=== PATIENT | female | born 1990 | race Caucasian/White ===

== ENCOUNTER 2017-11-04 22:43 | Observation (INO) ==
--- NOTE | 2017-11-05 00:27 | Emergency Department Note ---
START Narrative - START START: I examined this patient and my medical decision-making was reviewed with the Resident Physician. I agree with the documented findings, disposition and treatment plan as described except to the extent set forth below. 27-year-old female presents emergency room for right neck swelling. She states she had a small pimple on her neck last night and she attempted to pop it by squeezing it numerous times. She woke up this morning and noticed increased swelling to this area with some redness. She states the swelling and firmness has worsened. It is all located over the right anterior lateral part of her neck. She is able to swallow okay without any difficulty. No problems breathing. She states pain is worse with movement and with coughing. She denies any documented fevers. 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 Plan to check labs, blood cultures, CT soft tissue neck with IV contrast to evaluate this mass.
[2017-11-05 00:59] LABS: Basophils # 0.1 K/mcL (0.0-0.2); Basophils % 0.7 %; Eosinophils # 0.3 K/mcL (0.0-0.6); Eosinophils % 2.8 %; Hemoglobin 12.2 g/dL (11.5-15.4); Immature Granulocytes % 0.3 % (0-4); Lymphocytes % 31.9 %; Mean Corpuscular HGB Conc 31.3 g/dL (31.6-35.5); Mean Corpuscular Volume 89.7 fL (83.0-100.0); Mean Platelet Volume 10.9 fL (9.4-12.4); Monocytes # 0.7 K/mcL (0.0-1.3); Monocytes % 7.3 %; Neutrophils # 5.4 K/mcL (1.6-8.9); Platelet Count 304 K/mcL (140-400); Red Blood Count 4.35 M/mcL (3.82-4.97); Red Cell Distribution Width 13.5 % (11.5-14.5)
--- NOTE | 2017-11-05 01:05 | Emergency Department Note ---
Disposition Clinical Impression: Cellulitis, neck Disposition: Still a Patient Condition: Good Referrals: NONE,PCP [Primary Care Provider] - General Adult HPI - General Chief complaint: ED Skin/Abscess/Foreign Body Stated complaint: abscess on right side of neck Time Seen by Provider: 11/04/17 23:41 Source: patient Limitations: no limitations Nursing Notes Reviewed: Yes Vital Signs Reviewed: Yes - History of Present Illness HPI Narrative: Patient with a history of MRSA and IV drug use presents for evaluation of erythema and swelling to the right side of her neck. Patient states that she had a small pimple that she tried to pop that she was unable to get fluid from. Patient woke up this morning with increasing swelling redness and pain. Continue to progress. Patient has pain with coughing. Patient has pain with swallowing. Patient has no airway compromise at this time. Denies fever, chills, nausea, vomiting. Due to the location of this erythema and cellulitis we will perform blood work as well as a CT scan to rule out abscess. Patient will likely need admission secondary to location. Pain Scale: 6 - Related Data Previous Rx's Medication Instructions Recorded Clindamycin HCl [Cleocin HCl] 150 mg PO QID #40 capsule 12/07/16 Sulfamethoxazole/Trimeth DS 1 each PO BID #20 tablet 12/07/16 [Bactrim DS] Allergies Allergy/AdvReac Type Severity Reaction Status Date / Time No Known Allergies Allergy Verified 09/08/16 19:39 Review of Systems: CONSTITUTIONAL: No weight loss, fever, chills, weakness or fatigue. HEENT: Eyes: No visual changes. Ears, Nose, Throat: Pain with swallowing coughing No hearing loss, difficulty talking or unable to swallow. SKIN: Erythema and swelling to the right side of the neck CARDIOVASCULAR: No chest pain, chest pressure or chest discomfort. No palpitations or edema. RESPIRATORY: No shortness of breath, cough or sputum. GASTROINTESTINAL: No anorexia, nausea, vomiting or diarrhea. No abdominal pain or blood. GENITOURINARY: No burning on urination or hematuria. NEUROLOGICAL: No headache, dizziness, syncope, paralysis, ataxia, numbness or tingling in the extremities. No change in bowel or bladder control. MUSCULOSKELETAL: No muscle pain, back pain, joint pain or stiffness. Past Medical History - Past Medical History Medical history: Reports: no medical history Surgical history: Reports: Psychiatric history: Reports: panic disorder SUPERVISOR PREPRESS history: Reports: no SUPERVISOR PREPRESS history - Social History Smoking Status: Current every day smoker Smokeless Tobacco Status: No Alcohol use: Reports: none Drug use: Reports: none, IV Drug Use Physical Exam General appearance: NAD, conversant Eyes: anicteric sclerae, moist conjunctivae; no lid-lag; PERRL HENT: Atraumatic; oropharynx clear with moist mucous membranes; patient with 7 x 5 cm lesion to the right side of the neck. Local induration. No specific fluctuance felt. Patient has no airway compromise. No tenderness to palpation of the trachea. Neck: Normal appearance; Trachea midline Chest: Symmetrical chest rise; No respiratory distress Extremities: No peripheral edema or extremity tenderness Skin: Normal temperature, turgor and texture; no rash, ulcers or subcutaneous nodules Psych: Appropriate mood and affect Neuro: Awake and alert - General Limitations: no limitations General appearance: alert, in no apparent distress Course - Reevaluation(s) Reevaluation #1: Cases been signed out to Dr. Ac. The patient will likely need admission to the hospital for IV antibiotics. If abscess noted a consult ENT to be warranted. Vital Signs Temperature 98.0 F 11/04/17 22:44 Pulse Rate 80 11/04/17 22:44 Respiratory Rate 18 11/04/17 22:44 Blood Pressure 125/79 11/04/17 22:44 O2 Sat by Pulse Oximetry 100 11/04/17 22:44 Temperature 98.0 F 11/04/17 22:44 Pulse Rate 80 11/04/17 22:44 Respiratory Rate 18 11/04/17 22:44 Blood Pressure 125/79 11/04/17 22:44 O2 Sat by Pulse Oximetry 100 11/04/17 22:44 Oxygen Delivery Oxygen Delivery Room Air Medical Decision Making - Lab Data Result diagrams: 11/05/17 00:40 Lab Results 11/05/17 Range/Units 00:40 WBC 9.5 (4.3-11.1) K/mcL RBC 4.35 (3.82-4.97) M/mcL Hgb 12.2 (11.5-15.4) g/dL Hct 39.0 (35.3-44.9) % MCV 89.7 (83.0-100.0) fL MCH 28.0 (28.0-33.3) pg MCHC 31.3 L (31.6-35.5) g/dL RDW 13.5 (11.5-14.5) % Plt Count 304 (140-400) K/mcL MPV 10.9 (9.4-12.4) fL Immature Gran % 0.3 (0-4) % Seg Neutrophils % 57.0 % Lymphocytes % 31.9 % Monocytes % 7.3 % Eosinophils % 2.8 % Basophils % 0.7 % Neutrophils # 5.4 (1.6-8.9) K/mcL Lymphocytes # 3.0 (0.6-4.6) K/mcL Monocytes # 0.7 (0.0-1.3) K/mcL Eosinophils # 0.3 (0.0-0.6) K/mcL Basophils # 0.1 (0.0-0.2) K/mcL
[2017-11-05 01:22] LABS: BUN/Creatinine Ratio 19 (6-26); Blood Urea Nitrogen 10 mg/dL (6-20); Calcium 9.6 mg/dL (8.6-10.3); Carbon Dioxide 25 mEq/L (23-29); Chloride 102 mEq/L (98-107); Glucose 114 mg/dL (70-105); Osmolality,Calculated 280 (280-300); Potassium 3.5 mEq/L (3.5-5.1); Sodium 135 mEq/L (136-145); eGFR For African Americans > 60 (> 60); eGFR For Non-African Americans > 60 (> 60)
[2017-11-05] MEDS ORDERED: Clindamycin 600 MG/50 ML 600 MG/50 ML IV.SOLN IVPB ONE (02:13)
--- NOTE | 2017-11-05 02:28 | Emergency Department Note ---
Disposition Clinical Impression: Neck abscess Disposition: Admitted As Inpatient Condition: Good Referrals: NONE,PCP [Primary Care Provider] - Forms: ED Satisfaction Letter General Adult HPI - General Chief complaint: ED Skin/Abscess/Foreign Body Stated complaint: abscess on right side of neck Time Seen by Provider: 11/04/17 23:41 Source: patient Limitations: no limitations - History of Present Illness Pain Scale: 6 - Related Data Previous Rx's Medication Instructions Recorded Clindamycin HCl [Cleocin HCl] 150 mg PO QID #40 capsule 12/07/16 Sulfamethoxazole/Trimeth DS 1 each PO BID #20 tablet 12/07/16 [Bactrim DS] Allergies Allergy/AdvReac Type Severity Reaction Status Date / Time No Known Allergies Allergy Verified 09/08/16 19:39 Past Medical History - Past Medical History Medical history: Reports: no medical history Surgical history: Reports: Psychiatric history: Reports: panic disorder CLINICAL ADVISOR history: Reports: no CLINICAL ADVISOR history - Social History Smoking Status: Current every day smoker Smokeless Tobacco Status: No Alcohol use: Reports: none Drug use: Reports: none, IV Drug Use Physical Exam - General Limitations: no limitations General appearance: alert, in no apparent distress Course Course Narrative: Patient signed out from dayshift team pending CT scan of the neck. - Reevaluation(s) Reevaluation #1: Discussed results of imaging with the patient. No airway compromise at this time. Agreeable with IV antibiotics and admission. Reevaluation #2: CTA without evidence of pulmonary embolism or septic emboli. - Consultations Consultation #1: I spoke with the on-call ENT provider Dr. Mayo. Discussed the patient's history exam imaging labs and interventions. Recommends IV antibiotics and admission to the hospitalist service with consultation. Vital Signs Temperature 98.0 F 11/04/17 22:44 Pulse Rate 80 11/04/17 22:44 Respiratory Rate 18 11/04/17 22:44 Blood Pressure 125/79 11/04/17 22:44 O2 Sat by Pulse Oximetry 100 11/04/17 22:44 Temperature 98.0 F 11/04/17 22:44 Pulse Rate 67 11/05/17 03:00 Respiratory Rate 16 11/05/17 03:00 Blood Pressure 97/63 11/05/17 03:00 O2 Sat by Pulse Oximetry 97 11/05/17 03:00 Oxygen Delivery Oxygen Delivery Room Air Medical Decision Making - MDM Narrative Medical decision making narrative: 27-year-old female presents to the ER due to right neck swelling. Patient was signed out from dayshift team pending CT scan with evidence of abscess in the right sternocleidomastoid muscle. No airway compromise. Patient given vancomycin and clindamycin. Case discussed with ENT. CTA of the chest requested by hospitalist for septic emboli evaluation. No evidence of septic emboli. Admitted to the hospitalist service with ENT consultation. - Lab Data Lab results reviewed: Yes I reviewed the patient's lab results. Result diagrams: 11/05/17 00:40 11/05/17 00:40 Lab Results 11/05/17 11/05/17 Range/Units 00:40 00:40 WBC 9.5 (4.3-11.1) K/mcL RBC 4.35 (3.82-4.97) M/mcL Hgb 12.2 (11.5-15.4) g/dL Hct 39.0 (35.3-44.9) % MCV 89.7 (83.0-100.0) fL MCH 28.0 (28.0-33.3) pg MCHC 31.3 L (31.6-35.5) g/dL RDW 13.5 (11.5-14.5) % Plt Count 304 (140-400) K/mcL MPV 10.9 (9.4-12.4) fL Immature Gran % 0.3 (0-4) % Seg Neutrophils % 57.0 % Lymphocytes % 31.9 % Monocytes % 7.3 % Eosinophils % 2.8 % Basophils % 0.7 % Neutrophils # 5.4 (1.6-8.9) K/mcL Lymphocytes # 3.0 (0.6-4.6) K/mcL Monocytes # 0.7 (0.0-1.3) K/mcL Eosinophils # 0.3 (0.0-0.6) K/mcL Basophils # 0.1 (0.0-0.2) K/mcL Sodium 135 L (136-145) mEq/L Potassium 3.5 (3.5-5.1) mEq/L Chloride 102 (98-107) mEq/L Carbon Dioxide 25 (23-29) mEq/L BUN 10 (6-20) mg/dL Creatinine 0.54 L (0.60-1.20) mg/dL Est GFR ( Amer) > 60 (> 60) Est GFR (Non-Af Amer) > 60 (> 60) BUN/Creatinine Ratio 19 (6-26) Glucose 114 H (70-105) mg/dL Calculated Osmolality 280 (280-300) Calcium 9.6 (8.6-10.3) mg/dL - Radiology Data Radiology results reviewed: Yes I reviewed the patient's radiology results. Soft Tissue Neck CT 11/05/17 23:51 IMPRESSION: Rim enhancing collection in the right sternocleidomastoid muscle consistent with abscess. D/ / Jerry Sosa MD / Jerry Sosa MD Interpreting Provider: Jerry Sosa MD S.B.A.R. - S.B.A.R. Situation: Demographics, MOA Background: Presenting Complaint, Relevant PMH, Meds, & Allergies Assessment: Course and respsone to treatment, Exam Concerns, Patient/Family Expectation, Pertinant Lab Results Recommendation: Barrier(s) to disposition, Recommendation based on pending studies, treatments, or consults S.B.A.R. Report Given to: Dr. Pérez Attestation Statement - Attestation Attestation: I, Raciel Talbert MD, personally evaluated this patient and discussed their management with the resident physician. I reviewed the resident's note and agree with the documented findings, medical decision making, and plan of care. This patient was signed out at shift change from Dr. Silva and Dr. West. Please refer to their notes for complete details of the history and physical examination. At shift change she is awaiting a CT of the neck. CT obtained and showed an abscess in the right sternocleidomastoid muscle. Dr. Ac discussed the case with the ENT on-call, Dr. Mayo. She recommended admission by the hospitalist with IV antibiotics and will consult on the patient. The hospitalist, Dr. Pérez, was consulted and accepted admission of the patient. He did request a CTA of the chest to rule out pulmonary emboli prior to admitting her to the floor. This was ordered.
[2017-11-05] MEDS ORDERED: Ketorolac 15 MG/ML VIAL IVP ONE (03:23)
[2017-11-05] MEDS ORDERED: Acetaminophen 325 MG TABLET PO PRN (08:40)
[2017-11-05] MEDS ORDERED: Ondansetron 4 MG/2 ML VIAL IVP PRN (08:40)
[2017-11-05] MEDS ORDERED: Naloxone 0.4 MG/ML INJ IVP PRN (08:40)
--- NOTE | 2017-11-05 08:57 | Internal Med History&Physical ---
<Leonard Bashir - Last Filed: 11/05/17 09:57> Date of Encounter: 11/05/17 Time of Encounter: 08:57 Assessment and Plan (1) Neck abscess Current visit: Yes Status: Acute 3 day history of worsening right-sided neck mass with history IVDU. History positive for MRSA. CT neck shows rim enhancing collection in the right sternocleidomastoid consistent with abscess measuring approximately 2 x 2 centimeters in size Patient was started on vancomycin and clindamycin IV in the ED. We will stop and the clindamycin and add Zosyn for broad-spectrum coverage. Blood cultures sent Patient has acetaminophen and Toradol when necessary for pain ENT consult by ER physician for possible drainage. Nothing by mouth until seen by ENT No signs of sepsis, labs unremarkable no leukocytosis. (2) History of intravenous drug abuse Current visit: Yes Status: Chronic Patient states last IV drug use was one year ago. States she uses "everything. " UDS pending (3) Encounter for smoking cessation counseling Current visit: Yes Status: Chronic smoking cessation advised PRN nicotine patch (4) DVT prophylaxis Current visit: Yes Status: Acute ambulate TID Internal Medicine - H&P: HPI Chief complaint: Neck abscess Admitted From: Emergency Dept History of present illness: Ms. Sarah is a 27 year old female with a past medical history of IVDU and MRSA presenting to the emergency department with the complaint of a right sided neck swelling and redness. The patient states that her symptoms initially started as a small pimple on the right side of her neck and over the past 3 days has worsened, become red, and tender. Patient denies any drainage. Patient states last time she abused IV drugs was one year ago. When asked what drug she denies she states "everything." Denies any other past medical history. She states that she came into the hospital because her right neck was progressively becoming more swollen and red since she tried to pop the pimple. She denies fever or chills. Patient was admitted for IV antibiotics and possible I&D at the discretion of ENT. Past Med Surg Social Fam HX - Past Medical History Medical history: no medical history Psychiatric history: panic disorder - Past Surgical History Surgical History: - Social History Smoking Status: Current every day smoker Packs per day: 2 Smokeless Tobacco Status: No Alcohol use: none Drug use: none Internal Medicine - H&P: Meds No Known Home Drugs 11/05/17 [History] 3 Allergy/AdvReac Type Severity Reaction Status Date / Time No Known Allergies Allergy Verified 09/08/16 19:39 All Systems PM: A 10-system review of systems was performed and is negative for pertinent findings except as documented above in the HPI. - Constitutional Constitutional: no chills, no fever(s) - EENT Nose, mouth and throat: neck mass, neck pain, no dysphagia, no hoarseness, no sore throat, no throat swelling, no tongue swelling - Cardiovascular Cardiovascular ROS IM: no chest pain, no dyspnea - Respiratory Respiratory: no cough, no dyspnea on exertion, no wheezing, no pain on inspiration - Gastrointestinal Gastrointestinal: no abdominal pain, no nausea, no vomiting - Musculoskeletal Musculoskeletal ROS IM: no back pain, no myalgias - Integumentary Integumentary IM: erythema, rash (Right side of neck.) - Constitutional Vitals: Temp Pulse Resp BP Pulse Ox 98.2 F 59 16 89/61 98 11/05/17 07:49 11/05/17 07:49 11/05/17 07:49 11/05/17 07:49 11/05/17 07:49 General appearance: Present: A&O X 3, no acute distress Exam: Patient is sleeping when I entered the room she is arousable and alert and oriented - Head Head exam: Present: atraumatic, normal inspection, normocephalic - Eye Eye exam: Present: EOMI, normal appearance - ENT ENT exam: Present: mucous membranes dry, normal exam, normal external ear exam, normal oropharynx - Neck Neck exam general surgery: Present: lymphadenopathy (Posterior cervical), tenderness (Patient has a 4cm x 4cm area of induration over the right mid-SCM. There is overlying erythema. An area of 3x3mm excoriation that appears healed in the center of the induration. No drainage. Patient has ROM of neck with pain , more so when looking to the right. ). Absent: nuchal rigidity - Respiratory Respiratory exam: Present: CTAB. Absent: rales, rhonchi, wheezes - Cardiovascular Cardiovascular exam: Present: RRR, +S1, +S2. Absent: clicks, diastolic murmur, gallop, systolic murmur - GI/Abdominal GI/Abdominal exam: Present: normal bowel sounds, no peritoneal signs. Absent: guarding, mass, rebound, rigid, soft - Extremities Exam Extremities exam: Present: full ROM, normal inspection, warm. Absent: calf tenderness, pedal edema, tenderness - Back Exam Back exam: Present: normal inspection - Neurological Exam Additional comments: Patient is somnolent on exam, however as stated earlier she does wake up to answer questions. - Psychiatric Psychiatric exam: Present: normal affect, normal mood - Skin Skin exam: Present: dry, intact, normal color, warm Additional comments: Skin exam is normal except as stated in the neck exam. There are no signs or evidence of track cristina or other skin lesions related to IVDU. Internal Med - H&P Results - Labs CBC & Chem 7: 11/05/17 00:40 11/05/17 00:40 - Impressions ITS Impressions Soft Tissue Neck CT 11/05/17 23:51 IMPRESSION: Rim enhancing collection in the right sternocleidomastoid muscle consistent with abscess. D/ / Jerry Sosa MD / Jerry Sosa MD Interpreting Provider: Jerry Sosa MD <Lul Velasquez - Last Filed: 11/05/17 21:22> Date of Encounter: 11/05/17 Internal Medicine - H&P: HPI History of present illness: Ms. Sarah is a 27 year old female All Systems PM: A 10-system review of systems was performed and is negative for pertinent findings except as documented above in the HPI. - Constitutional Vitals: Temp Pulse Resp BP Pulse Ox 99.5 F 63 15 105/66 98 11/05/17 20:08 11/05/17 20:08 11/05/17 20:08 11/05/17 20:08 11/05/17 20:08 Internal Med - H&P Results - Labs CBC & Chem 7: 11/05/17 00:40 11/05/17 00:40 - Impressions ITS Impressions Soft Tissue Neck CT 11/05/17 23:51 IMPRESSION: Rim enhancing collection in the right sternocleidomastoid muscle consistent with abscess. D/ / Jerry Sosa MD / Jerry Sosa MD Interpreting Provider: Jerry Sosa MD - Attending Attestation I examined this patient and my medical decision-making was reviewed with the Resident Physician, Dr Bashir. I agree with the documented findings, disposition and treatment plan as described except to the extent set forth below. Patient presented to the hospital with right cervical area swelling redness and pain. On exam physical findings consistent with right SCM abscess. Heart is regular S1-S2 with no murmurs Plan: Zosyn and vancomycin for neck abscess with cellulitis. ENT consult. I discussed the case with ENT, plan for I&D and culture. High risk for morbidity and complications due to IV vancomycin which requires blood level monitoring for toxicity.
[2017-11-05] MEDS ORDERED: Nicotine 14 MG PATCH.TD24 TD PRN (09:53)
[2017-11-05] MEDS ORDERED: Aminoglycoside Consult 1 EACH MC ONE (11:59)
[2017-11-05 12:38] LABS: Amphetamine Screen,Urine Positive ng/mL (Cutoff=1000); Barbiturate Screen,Urine Negative ng/mL (Cutoff=200); Benzodiazepines Screen,Urine Negative ng/mL (Cutoff=200); Cannabinoid Screen,Urine Negative ng/mL (Cutoff = 50); Cocaine Screen,Urine Negative ng/mL (Cutoff= 300); Opiate Screen,Urine Positive ng/mL (Cutoff=300); Phencyclidine Screen,Urine Negative ng/mL (Cutoff=25)
[2017-11-05] MEDS: Ketorolac 15 MG/ML VIAL IVP PRN ×2 (14:44→23:01)
--- NOTE | 2017-11-05 16:22 | ENT - Consult Note ---
Date of Encounter: 11/05/17 Time of Encounter: 15:30 Assessment and Plan (1) Neck abscess Current Visit: Yes Status: Acute Fairly superficial neck abscess which appears like it is either overlying the sternocleidomastoid or perhaps in the sternocleidomastoid or incision and drainage patient should be nothing by mouth for 8 hours before operating I&D scheduled and 8 PM tonight History of Present Illness Consult date: 11/05/17 Reason for ENT Consult: neck mass History of present illness: 27-year-old white female with history of MRSA stated she had a pimple on the right neck which became infected for the last 48 hours and caused a significant right neck swelling this area suspicious for possible IV drug use but she says she has not been taking any drugs for at least a year patient is on Zosyn and vancomycin Past Med Surg Social Fam HX - Past Medical History Medical history: no medical history Psychiatric history: panic disorder - Past Surgical History Surgical History: - Social History Smoking Status: Current every day smoker Packs per day: 2 Smokeless Tobacco Status: No Alcohol use: none Drug use: none Medications and Allergies No Known Home Drugs 11/05/17 [History] 3 Allergy/AdvReac Type Severity Reaction Status Date / Time No Known Allergies Allergy Verified 09/08/16 19:39 ENT Exam Initial Vital Signs Temp Pulse Resp BP Pulse Ox 98.0 F 80 18 125/79 100 11/04/17 22:44 11/04/17 22:44 11/04/17 22:44 11/04/17 22:44 11/04/17 22:44 - General physical appearance well developed, well nourished, no distress, moderate pain. negative: moderate distress, severe distress, severe pain, cachectic, obese - Eyes PERRL, normal ocular movement, icteric - ENT normal pinna, normal nares, normal mucosa, no hearing loss, no congestion. negative: decreased hearing, deviated nasal septum, nasal discharge, poor penitentiary, dentures, mucosal exudate, dry mucosa - Neck other (Is an inflamed tender abscess overlying and perhaps within the right sternocleidomastoid muscle) - Respiratory normal expansion, normal respiratory effort, clear to percussion, clear to auscultation - Abdomen Abdomen: soft, non tender, bowel sounds, no tender, no surgical scars - Integumentary no rash, no growths, no abnormal pigmentation - Neurologic CN 2-12 grossly intact, normal coordination, normal sensation - Musculoskeletal normal gait, normal posture - Psychiatric oriented to time, oriented to person, oriented to place, speech is normal, memory intact Exam Initial Vital Signs Temp Pulse Resp BP Pulse Ox 98.0 F 80 18 125/79 100 11/04/17 22:44 11/04/17 22:44 11/04/17 22:44 11/04/17 22:44 11/04/17 22:44 Results - Labs 11/05/17 00:40 11/05/17 00:40 Abnormal lab results MCHC 31.3 g/dL (31.6-35.5) L 11/05/17 00:40 Sodium 135 mEq/L (136-145) L 11/05/17 00:40 Creatinine 0.54 mg/dL (0.60-1.20) L 11/05/17 00:40 Glucose 114 mg/dL (70-105) H 11/05/17 00:40 Urine Opiates Screen Positive ng/mL (Bigngm=109) H 11/05/17 12:10 Ur Amphetamines Screen Positive ng/mL (Iifauz=[id number]) H 11/05/17 12:10 All other labs normal. Consult Discharge Plan - Plan Referrals: NONE,PCP [Primary Care Provider] -
--- NOTE | 2017-11-05 20:46 | Anesthesia Evaluation PreOp ---
Date of Encounter: 11/05/17 Time of Encounter: 20:44 - Past History Planned Operation: I&D right neck abscess Cardiac History: Denies any Significant Hx Pulmonary History: Smoker NUTRITIONAL ASSISTANT History: Denies Any Significant HX Other Medical History: Other (IVDU) Anesthesia History: No Prior Anesthetic Complications (no fhx of problems with anesthesia; patient has never been under anesthesia) Alcohol Use: none Drug use: none Medications and Allergies No Known Home Drugs 11/05/17 [History] 3 Allergy/AdvReac Type Severity Reaction Status Date / Time No Known Allergies Allergy Verified 09/08/16 19:39 - Meds/Allergy Pre-op Review Medications Reviewed: Yes Allergies Reviewed: Yes Beta Blockers on Current Med List: No Anesthesia Results - Labs 11/05/17 00:40 11/05/17 00:40 Anesthesia Exam Last Vital Signs Temp 99.5 F 11/05/17 20:08 Pulse 63 11/05/17 20:08 Resp 15 11/05/17 20:08 BP 105/66 11/05/17 20:08 Pulse Ox 98 11/05/17 20:08 Weight: 64 kg NPO (# of Hours): = 8 hours - HEENT Pupil (Motor): Pupils equal, EOMI Mallampati: III Teeth: Normal (poor neck ROM due to neck abscess) Oral Opening: Greater than 3 - NUTRITIONAL ASSISTANT LOC: Oriented - Cardiac Rhythm: Regular Murmur: None - Pulmonary Breath Sounds: bilateral Clear Respiratory Effort: Symmetrical Anesthesia Assess/Plan ASA Score: 2 Modified Luna Scale for Level of Consciousness: Cooperative, oriented, and tranquil Anesthetic Plan: General Monitoring Plan: Standard Monitors Recovery Plan: PACU
[2017-11-05] MEDS ORDERED: Lidocaine -MPF 2% 2 ML VIAL ONE (20:52)
[2017-11-05] MEDS ORDERED: *HR* Propofol 200 MG/20 ML VIAL IVP ONE (20:52)
[2017-11-05] MEDS ORDERED: *HR* Succinylcholine 200 MG/10 ML VIAL IVP ONE (20:53)
[2017-11-05] MEDS ORDERED: *HR* FentaNYL (PF) 100 MCG/2 ML VIAL ONE (20:53)
[2017-11-05] MEDS ORDERED: *HR* Midazolam HCl 2 MG/2 ML VIAL ONE (20:53)
[2017-11-05] MEDS ORDERED: Ondansetron 4 MG/2 ML VIAL ONE (21:07)
[2017-11-05] MEDS ORDERED: Dexamethasone 4 MG/ML VIAL ONE (21:07)
--- NOTE | 2017-11-05 21:25 | Operative Note ---
Date of procedure: 11/05/17 Pre-op diagnosis: neck abcess Procedure: Incision and drainage of neck abscess Complications: Negative Anesthesia: GETA Surgeon: Beka Sylvester Was there an office assistant present: No Estimated blood loss (cc): 10 Specimen: Purulent drainage Condition: stable Disposition: floor Procedure in Detail: White female with early suprafascial neck abscess right neck for IND a small stab incision was made overlying the central of the neck swelling in a skin crease followed by opening of the wound with a hemostat and probing the cavity to break any loculations followed by drainage of about 5 mL of purulent material that was cultured for both Aerobes and anaerobes about 8 inches of quarter inch iodoform gauze was packed into the wound followed by a stitch ointment and a dressing the patient was taken to the recovery room in good condition
[2017-11-05] MEDS ORDERED: *HR* OxyCODONE Immed Rel 5 MG TABLET PO PRN (21:45)
[2017-11-05] MEDS ORDERED: *HR* Promethazine 25 MG/ML VIAL IVP PRN (21:46)
[2017-11-05] MEDS: MORPHINE SUL Oral CONC 10 MG/0.5 ML ORAL.SYG SL PRN ×2 (22:05→22:15)
--- NOTE | 2017-11-05 22:23 | Anesthesia Evaluation Post Op ---
Date of Encounter: 11/05/17 Time of Encounter: 22:23 - Vital Signs Vital Signs: Last Vital Signs Temp 99.3 F 11/05/17 22:10 Pulse 71 11/05/17 22:20 Resp 16 11/05/17 22:20 BP 101/70 11/05/17 22:20 Pulse Ox 95 11/05/17 22:20 - Lungs Lungs: Clear Ascult./Percussion - Airway Airway: Non-obstructed - Cardiovascular Regular Rate - Mental Status Mental Status: Alert & Oriented, Answers Appropriately - Pain Pain Scale: 3 - Nausea Vomiting Nausea Vomiting: Not Present - Hydration Hydration: NPO - Discharge PostOp Status: Transfer Patient to floor
[2017-11-06] MEDS: Ketorolac 15 MG/ML VIAL IVP PRN (08:36)
--- NOTE | 2017-11-06 09:17 | ENT - Progress Note ---
Date of Encounter: 11/06/17 Time of Encounter: 09:00 - Assessment and Plan (1) Neck abscess Current Visit: Yes Status: Resolved Fairly superficial neck abscess which appears like it is either overlying the sternocleidomastoid or perhaps in the sternocleidomastoid or incision and drainage patient should be nothing by mouth for 8 hours before operating I&D scheduled and 8 PM tonight Subjective Patient reports: no new complaints (Incision and drainage fu removed packing afebrile no substantial drainage much improved) Objective Initial Vital Signs Temp Pulse Resp BP Pulse Ox 98.0 F 80 18 125/79 100 11/04/17 22:44 11/04/17 22:44 11/04/17 22:44 11/04/17 22:44 11/04/17 22:44 - General physical appearance well developed, well nourished, no distress - Eyes PERRL, normal ocular movement - ENT normal pinna, normal nares, normal mucosa, no hearing loss, no congestion - Neck no masses, deviated trachea, other (Packing removed from right neck incision site swelling dramatically improved neck mobile) - Respiratory normal expansion, normal respiratory effort - Abdomen soft, non tender - Integumentary no rash, no growths, no abnormal pigmentation - Neurologic CN 2-12 grossly intact, normal coordination, normal sensation - Musculoskeletal normal gait - Psychiatric oriented to time, oriented to person, oriented to place, speech is normal - Labs 11/05/17 00:40 11/05/17 00:40 - VTE Documentation of Mechanical Device: Intermittent pneumatic compression device Consult Discharge Plan - Plan Additional Instructions: Okay to discharge patient with instructions to follow up tomorrow at 9 AM apply ointment to wound as well as heat discussed with hospitalist continued antibiotic management using Bactrim at home for 1 week Referrals: NONE,PCP [Primary Care Provider] - Prescriptions: Acetaminophen [Tylenol] 650 mg PO Q6HR PRN #20 tablet PRN Reason: Mild Pain/Fever Sulfamethoxazole/Trimeth DS [Bactrim DS] 1 each PO BID #14 tablet
[2017-11-06 10:41] VITALS: BP 120/79
--- NOTE | 2017-11-06 11:21 | Discharge Summary ---
Date of Encounter: 11/06/17 Time of Encounter: 11:19 - Discharge Diagnosis (1) Neck abscess Priority: Primary Status: Resolved (2) Encounter for smoking cessation counseling Priority: Secondary Status: Chronic (3) IVDU (intravenous drug user) Priority: Secondary Status: Acute - Discharge Medications Prescriptions: Acetaminophen [Tylenol] 650 mg PO Q6HR PRN #20 tablet PRN Reason: Mild Pain/Fever Sulfamethoxazole/Trimeth DS [Bactrim DS] 1 each PO BID #14 tablet Home Medications: Acetaminophen [Tylenol] 650 mg PO Q6HR PRN #20 tablet 11/06/17 [Rx] Sulfamethoxazole/Trimeth DS [Bactrim DS] 1 each PO BID #14 tablet 11/06/17 [Rx] Allergies/Adverse Reactions: 3 Allergy/AdvReac Type Severity Reaction Status Date / Time No Known Allergies Allergy Verified 09/08/16 19:39 Date of admission: 11/05/17 04:09 Primary care physician: PCP NONE - Patient Status Disposition: Home, Self-Care Condition: Good Functional capacity at discharge: independent ambulation Overall status at discharge: patient is back to baseline - Discharge Instructions Follow Up With: NONE,PCP [Primary Care Provider] - Additional Instructions: PCP: Please help pt find a PCP. ENT: Okay to discharge patient with instructions to follow up tomorrow at 9 AM apply ointment to wound as well as heat discussed with hospitalist continued antibiotic management using Bactrim at home for 1 week - Diet and Activity Activity: increase activity as tolerated Diet: advance to your usual diet Interval History: Miss. Paula is a 27 year female with PMH of smoking and IV drug abuse presented with neck pain. CT revealed neck abscess and she underwent right neck abscess incision and drainage on 11/05 by ENT. Abscess fluid was sent for culture and preliminary report showed no growth. She was seen by ENT Dr. Sylvester this morning. Dr. Sylvester states pt can be discharged home and she will come back to see Dr. Sylvester tomorrow morning. She was instructed to take Bactrim for a total course of 7 days. She also was instructed to find a PCP and f/u PCP as needed. Counselling about drug abuse was discussed with patient. Hospital course: Ms. Sarah is a 27 year old female Time spent discussing smoking cessation with patient: more than 10 minutes - Time Spent with Patient Total time spent providing and/or coordinating discharge services: Less than 30 minutes - Constitutional Vitals: Temp Pulse Resp BP Pulse Ox 98 F 58 15 120/79 99 11/06/17 10:39 11/06/17 10:39 11/06/17 10:39 11/06/17 10:39 11/06/17 10:39 General appearance: Present: A&O X 3, no acute distress - Head Head exam: Present: normocephalic - Neck Neck exam general surgery: Present: full ROM Additional comments: right neck incision site covered with dressing, dry and clean. - Respiratory Respiratory exam: Present: CTAB. Absent: accessory muscle use, rales, rhonchi, wheezes - Cardiovascular Cardiovascular exam: Present: RRR, +S1, +S2. Absent: diastolic murmur, gallop, rubs, systolic murmur - GI/Abdominal GI/Abdominal exam: Present: normal bowel sounds, soft, no peritoneal signs. Absent: distended, tenderness - VTE Documentation of Mechanical Device: Intermittent pneumatic compression device
== END 2017-11-06 12:00 | disposition home or self-care (01) ==
LOC: EMEROO 22:43 → 2SOUTHHOLD 22:43 → 3ANU 11-05 16:38
PROVIDERS: ADMIT Internal Medicine; ATTEND Internal Medicine